=== PATIENT | male | born 1970 | race African-American/Black ===

== ENCOUNTER 2017-02-03 10:53 | Emergency (ER) | payer SELFPAY ==
[~2017-02-03] VITALS: Ht 185.4 cm; Wt 148.1 kg
[2017-02-03] MEDS ORDERED: IV NORMAL SALINE 1000ML BAG 1,000 ML IV SCH (11:25)
[2017-02-03] MEDS ORDERED: ONDANSETRON PF 4 MG/2 ML VIAL. IV ONE (11:30)
[2017-02-03] MEDS ORDERED: MORPHINE SULFATE 4 MG/ML DISP.SYRIN. IV/SQ PRN (11:30)
[2017-02-03 11:46] LABS: BASO % 1 % (0-3); EOS % 2 % (0-3); HEMATOCRIT 44.5 % (39.0-53.0); HEMOGLOBIN 14.5 g/dL (13.0-17.5); LYMPH # 2.9 x10^3/uL (1.0-4.8); LYMPH % 40 % (24-48); MEAN CORPUSCULAR HEMOGLOBIN 28 pg (25-35); MEAN CORPUSCULAR HGB CONC 33 g/dL (31-37); MEAN CORPUSCULAR VOLUME 86 fL (79-100); MONO % 10 % (0-9); NEUT % 48 % (31-73); PLATELET COUNT 174 x10^3/uL (140-400); RED BLOOD COUNT 5.16 x10^6/uL (4.30-5.70); RED CELL DISTRIBUTION WIDTH 13.6 % (11.5-14.5); WHITE BLOOD COUNT 7.2 x10^3/uL (4.0-11.0)
[2017-02-03 11:49] LABS: CALCIUM 9.1 mg/dL (8.5-10.1); CREATININE 1.6 mg/dL (0.7-1.3); POTASSIUM 3.7 mmol/L (3.5-5.1)
[2017-02-03 11:54] LABS: ALBUMIN 3.9 g/dL (3.4-5.0); ALBUMIN/GLOBULIN RATIO 0.9 (1.0-1.7); TOTAL BILIRUBIN 0.3 mg/dL (0.2-1.0); TOTAL PROTEIN 8.1 g/dL (6.4-8.2)
[2017-02-03 11:56] LABS: INR 0.9 (0.8-1.1); PROTHROMBIN TIME PATIENT 11.8 SEC (11.7-14.0)
[2017-02-03 12:04] LABS: CKMB INDEX 0.4 % (0-4); CKMB MASS 2.5 ng/mL (0.0-3.6)
--- NOTE | 2017-02-03 12:18 | RAD ---
Three-view study of the lumbar spine Clinical indications: Low back pain with increase in intensity the past week. Findings: No compression fracture or discitis or ossific process or anterolisthesis is seen. The transverse processes are intact. Mild degenerative endplate spurring is seen at L3-4 without disc space narrowing. IMPRESSION: No acute compression fracture.
--- NOTE | 2017-02-03 12:25 | PHYS DOC ---
Past Medical History Past Medical History: Hypertension Past Surgical History: No Surgical History Additional Information: Nonsmoker Alcohol Use: Occasionally Drug Use: Cocaine, Marijuana Social History Narrative: LAST USED COCAINE "MAYBE NOT EVEN A WEEK AGO" Adult General Chief Complaint Chief Complaint: HEADACHE HPI HPI Patient is a 46 year old male who presents with low back pain and headache for one week. He states that the low back pain radiates down his right leg. His headache is located in the occipital region. He has associated blurred vision bilaterally with photophobia. Reports intermittent numbness in his hands and feet bilaterally. He feels lightheaded when going from sitting to standing. He also reports nausea without vomiting, periumbilical pain, and loose stools. He denies fever, focal weakness, incontinence bowel or bladder, or saddle anesthesia. He denies any injury to his head or back. He has a history of hypertension. He is noncompliant with his medications and has not been on any antihypertensives for quite some time now. He admits to marijuana and cocaine use. He does not currently have a PCP. Review of Systems Review of Systems Constitutional: Denies fever or chills. [] Eyes: Denies redness, or eye pain. Reports bilateral blurred vision and photophobia. HENT: Denies ear pain, nasal congestion or sore throat. [] Respiratory: Denies cough or shortness of breath. [] Cardiovascular: Denies chest pain, palpitations or edema. [] GI: Denies vomiting, bloody stools or diarrhea. Reports periumbilical pain and nausea with loose stools. : Denies dysuria, hematuria or urinary frequency. [] Musculoskeletal: Denies joint pain. Reports low-back pain. Integument: Denies rash or skin lesions. [] Neurologic: Denies focal weakness or sensory changes. Denies incontinence or saddle anesthesia. Reports occipital headache and intermittent numbness in the feet and hands bilaterally. Endocrine: Denies polyuria or polydipsia. [] Psych: Denies anxiety or depression. [] All systems reviewed and negative unless otherwise stated in the HPI. Current Medications Current Medications Current Medications Medications (Trade) Dose Ordered Sig/Adriana Start Time Stop Time Status Last Admin Dose Admin Morphine Sulfate 4 mg PRN Q15MIN PRN 02/03/17 11:30 02/04/17 11:29 02/03/17 11:41 4 MG Ondansetron HCl (Zofran) 4 mg 1X ONCE 02/03/17 11:30 02/03/17 11:32 DC 02/03/17 11:41 4 MG Sodium Chloride (Iv Sodium Chloride 0.9% 1000ml Bag) 1,000 ml @ 1,000 mls/hr Q1H 02/03/17 11:25 02/03/17 12:24 DC 02/03/17 11:36 1,000 MLS/HR Allergies Allergies Allergies Coded Allergies Type Severity Reaction Last Updated Verified No Known Drug Allergies 02/03/17 No Physical Exam Physical Exam Constitutional: Well developed, well nourished, no acute distress, non-toxic appearance. [] HENT: Normocephalic, atraumatic, bilateral external ears normal, oropharynx moist, no oral exudates, nose normal. [] Eyes: PERRLA, EOMI, conjunctiva normal, no discharge. No nystagmus. Neck: Normal range of motion, no tenderness, supple, no stridor. There is no nuchal rigidity or meningeal signs. Cardiovascular: Heart rate regular rhythm, no murmur [] Lungs & Thorax: Bilateral breath sounds clear to auscultation without wheezes, rales, or rhonchi. Abdomen: Bowel sounds normal, soft, epigastric and periumbilical tenderness, no masses, no pulsatile masses. [] Skin: Warm, dry, no erythema, no rash. [] Back: Midline lumbar tenderness, no CVA tenderness. No paraspinal muscle tenderness. Straight leg raise negative bilaterally. Extremities: No tenderness, no cyanosis, no clubbing, ROM intact, no edema. [] Neurologic: Alert and oriented X 3, normal motor function, normal sensory function, no focal deficits noted. CN II-XII grossly intact. Light touch sensation intact proximally and distally and equal bilaterally in the lower extremities. Psychologic: Affect normal, judgement normal, mood normal. [] Current Patient Data Vital Signs Vital Signs Date Time Temp Pulse Resp B/P Pulse Ox O2 Delivery O2 Flow Rate FiO2 02/03/17 13:30 87 16 137/89 100 Room Air 02/03/17 10:56 97.7 97.7 Lab Values Laboratory Tests Test 02/03/17 11:20 02/03/17 12:32 White Blood Count 7.2x10^3/uL (4.0-11.0) Red Blood Count 5.16x10^6/uL (4.30-5.70) Hemoglobin 14.5g/dL (13.0-17.5) Hematocrit 44.5% (39.0-53.0) Mean Corpuscular Volume 86fL (79-100) Mean Corpuscular Hemoglobin 28pg (25-35) Mean Corpuscular Hemoglobin Concent 33g/dL (31-37) Red Cell Distribution Width 13.6% (11.5-14.5) Platelet Count 174x10^3/uL (140-400) Neutrophils (%) (Auto) 48% (31-73) Lymphocytes (%) (Auto) 40% (24-48) Monocytes (%) (Auto) 10% (0-9) H Eosinophils (%) (Auto) 2% (0-3) Basophils (%) (Auto) 1% (0-3) Neutrophils # (Auto) 3.5x10^3uL (1.8-7.7) Lymphocytes # (Auto) 2.9x10^3/uL (1.0-4.8) Monocytes # (Auto) 0.7x10^3/uL (0.0-1.1) Eosinophils # (Auto) 0.1x10^3/uL (0.0-0.7) Basophils # (Auto) 0.0x10^3/uL (0.0-0.2) Prothrombin Time 11.8SEC (11.7-14.0) Prothrombin Time INR 0.9 (0.8-1.1) Sodium Level 141mmol/L (136-145) Potassium Level 3.7mmol/L (3.5-5.1) Chloride Level 105mmol/L (98-107) Carbon Dioxide Level 28mmol/L (21-32) Anion Gap 8 (6-14) Blood Urea Nitrogen 15mg/dL (8-26) Creatinine 1.6mg/dL (0.7-1.3) H Estimated GFR (Cockcroft-Gault) 47.0 BUN/Creatinine Ratio 9 (6-20) Glucose Level 77mg/dL (70-99) Calcium Level 9.1mg/dL (8.5-10.1) Total Bilirubin 0.3mg/dL (0.2-1.0) Aspartate Amino Transferase (AST) 22U/L (15-37) Alanine Aminotransferase (ALT) 38U/L (16-63) Alkaline Phosphatase 67U/L (46-116) Creatine Kinase 566U/L (39-308) H Creatine Kinase MB (Mass) 2.5ng/mL (0.0-3.6) Creatine Kinase MB Relative Index 0.4% (0-4) Total Protein 8.1g/dL (6.4-8.2) Albumin 3.9g/dL (3.4-5.0) Albumin/Globulin Ratio 0.9 (1.0-1.7) L Lipase 126U/L (73-393) Urine Collection Type Unknown Urine Color Yellow Urine Clarity Clear Urine pH 5.5 Urine Specific [place] >=1.030 Urine Protein Negativemg/dL (NEG-TRACE) Urine Glucose (UA) Negativemg/dL (NEG) Urine Ketones (Stick) Negativemg/dL (NEG) Urine Blood Negative (NEG) Urine Nitrite Negative (NEG) Urine Bilirubin Negative (NEG) Urine Urobilinogen Dipstick 0.2mg/dL (0.2 mg/dL) Urine Leukocyte Esterase Moderate (NEG) Urine RBC 0/HPF (0-2) Urine WBC Tntc/HPF (0-4) Urine Bacteria 0/HPF (0-FEW) Urine Mucus Marked/LPF Urine Opiates Screen Pos (NEG) Urine Methadone Screen Neg (NEG) Urine Barbiturates Neg (NEG) Urine Phencyclidine Screen Pos (NEG) Urine Amphetamine/Methamphetamine Neg (NEG) Urine Benzodiazepines Screen Neg (NEG) Urine Cocaine Screen Pos (NEG) Urine Cannabinoids Screen Pos (NEG) Urine Ethyl Alcohol Neg (NEG) Laboratory Tests 02/03/17 11:20 Laboratory Tests 02/03/17 11:20 EKG EKG EKG at 1125. Heart rate 92 bpm. Sinus rhythm without STEMI, as interpreted by Dr. Busch. Radiology/Procedures Radiology/Procedures REASON: headache, HTN PROCEDURE: CT HEAD WO CONTRAST Clinical indications: Headache for one week. History of hypertension. Findings: No acute intracranial hemorrhage or midline shift or mass-effect or hydrocephalus or extra-axial fluid collection is seen. No focal hypodense area or sulci effacement is seen to indicate an acute infarct or edema radiographically. No skull fracture or pneumocephalus is seen. No opacification of the mastoid sinuses or the paranasal sinuses is seen. The maxillary sinuses are not completely seen in this study. Impression: No acute intracranial abnormality is seen. REASON: low back pain PROCEDURE: LUMBAR SPINE 2-3V Three-view study of the lumbar spine Clinical indications: Low back pain with increase in intensity the past week. Findings: No compression fracture or discitis or ossific process or anterolisthesis is seen. The transverse processes are intact. Mild degenerative endplate spurring is seen at L3-4 without disc space narrowing. IMPRESSION: No acute compression fracture. Course & Med Decision Making Course & Med Decision Making Pertinent Labs and Imaging studies reviewed. (See chart for details) Patient is a 46-year-old male who presents with headache, low back pain, and abdominal pain for one week. Upon arrival to the emergency department, he is hypertensive. He is noncompliant with his blood pressure medications, as he does not have a PCP. On exam, his abdomen is soft and nonsurgical. There are no neurologic deficits. CT of the head does not show any acute abnormalities. Lumbar spine x-ray is normal. The patient's pain improved with IV morphine, Zofran, and IV fluids. His creatinine is mildly elevated but there are no other significant laboratory abnormalities. Urine shows many white blood cells. EKG shows a sinus rhythm without STEMI. His blood pressure improved to 137/89 without antihypertensive treatment. Patient is discharged home with prescription for Bactrim, [place], and Zofran. He is given a list of primary care providers for follow-up. I stressed the importance of establishing a primary care provider for treatment of his blood pressure. We discussed the risks of chronically elevated blood pressure. The patient verbalizes understanding. He remained stable in the emergency department. Dragon Disclaimer Dragon Disclaimer This electronic medical record was generated, in whole or in part, using a voice recognition dictation system. Departure Departure Impression: Primary Impression: UTI (urinary tract infection) Additional Impressions: Headache Low back pain Abdominal pain Disposition: HOME, SELF-CARE Condition: IMPROVED Referrals: NO PCP (PCP) Patient Instructions: Abdominal Pain, [id number], Back Pain, Adult, Easy-to- Read, General Headache Without Cause, [id number], Hypertension, [id number], Urinary Tract Infection, [id number] Additional Instructions: Your urine was positive for infection. Your CT and x-ray were normal. There were no significant laboratory abnormalities. Your blood pressure was high upon arrival to the emergency department today. It is very important that he follow-up with a primary care doctor for treatment of your high blood pressure. Please complete all of the prescribed antibiotics for your urinary tract infection, even if you're feeling better. Please take the prescribed pain medication as directed. Do not drive or operate heavy machinery while taking pain medication. Please follow-up with a primary care doctor in the next 2-3 days, sooner if concerns. Return to the emergency department if you have any new or concerning symptoms. Scripts Sulfamethoxazole/Trimethoprim (Bactrim Ds Tablet)1 Each Tablet1 Tab PO BID #14 TAB Prov:PRASHANTH LI 02/03/17 Ondansetron (Zofran Odt)4 Mg Tab.rapdis1 Tab SL Q8HRS #10 TAB Prov:PRASHANTH LI 02/03/17 Hydrocodone/Apap 5-325 ([place] 5-325 Tablet)1 Each Tablet1 Tab PO PRN Q6HRS PRN PAIN #20 TAB Prov:PRASHANTH LI 02/03/17 Problem Qualifiers Primary Impression: UTI (urinary tract infection) Urinary tract infection type: acute cystitis Hematuria presence: without hematuria Qualified Code: N30.00 - Acute cystitis without hematuria Additional Impressions: Headache Headache type: unspecified Headache chronicity pattern: acute headache Intractability: not intractable Qualified Code: R51 - Headache Low back pain Chronicity: acute Back pain laterality: midline Sciatica presence: with sciatica Sciatica laterality: sciatica of right side Qualified Code: M54.41 - Lumbago with sciatica, right side Abdominal pain Abdominal location: unspecified location Qualified Code: R10.9 - Unspecified abdominal pain PRASHANTH LI Feb 03, 2017 12:25
[2017-02-03 12:48] LABS: BILIRUBIN,URINE NEGATIVE (NEG); GLUCOSE,URINE NEGATIVE (NEG); NITRITE,URINE NEGATIVE (NEG); PH,URINE 5.5; PROTEIN,URINE NEGATIVE (NEG-TRACE); UROBILINOGEN,URINE 0.2 mg/dL (0.2 mg/dL)
--- NOTE | 2017-02-03 12:50 | RAD ---
Clinical indications: Headache for one week. History of hypertension. Technique: Noncontrast axial cross sectional scanning of the head was performed. PQRS Compliance Statement: One or more of the following individualized dose reduction techniques were utilized for this examination: 1. Automated exposure control 2. Adjustment of the mA and/or kV according to patient size 3. Use of iterative reconstruction technique Findings: No acute intracranial hemorrhage or midline shift or mass-effect or hydrocephalus or extra-axial fluid collection is seen. No focal hypodense area or sulci effacement is seen to indicate an acute infarct or edema radiographically. No skull fracture or pneumocephalus is seen. No opacification of the mastoid sinuses or the paranasal sinuses is seen. The maxillary sinuses are not completely seen in this study. Impression: No acute intracranial abnormality is seen.
[2017-02-03 12:54] LABS: BARBITURATES NEG (NEG); BENZODIAZEPINES NEG (NEG); CANNABINOIDS POS (NEG); COCAINE POS (NEG); METHADONE NEG (NEG); OPIATES POS (NEG); PHENCYCLIDINE POS (NEG)
[2017-02-03 12:58] LABS: ETHANOL, URINE NEG (NEG)
[2017-02-03 13:05] LABS: BACTERIA,URINE 0 /HPF (0-FEW); RBC,URINE 0 /HPF (0-2); WBC,URINE TNTC /HPF (0-4)
[2017-02-03 13:30] VITALS: BP 137/89
[2017-02-03] MEDS ORDERED: ONDA4TAB10 SL (13:45)
[2017-02-03] MEDS ORDERED: HYDR-971 PO (13:45)
[2017-02-03] MEDS ORDERED: SULF1TAB24 PO (13:45)
--- NOTE | 2017-02-04 12:24 | EKG ---
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
== END 2017-02-03 13:58 | disposition home or self-care (01) ==
LOC: ER 10:53
DX: M54.41 Lumbago with sciatica, right side (principal); N30.00 Acute cystitis without hematuria; R10.33 Periumbilical pain; R51 Headache; I10 Essential (primary) hypertension; F12.10 Cannabis abuse, uncomplicated; F14.10 Cocaine abuse, uncomplicated; H53.8 Other visual disturbances; H53.143 Visual discomfort, bilateral; R20.0 Anesthesia of skin; R42 Dizziness and giddiness; R19.7 Diarrhea, unspecified
CPT/HCPCS: 36415; 70450; 72100; 80053; 80305; 81001; 82553; 83690; 85027; 85610; 87086; 93005; 96361; 96374; 96375; 99285; J2270; J2405; J7030; G0481